=== PATIENT | male | born 1960 | race Caucasian/White ===

== ENCOUNTER 2020-01-31 14:58 | Emergency (ER) | payer MEDICARE, MEDICAID, SELFPAY ==
[2020-01-31 14:59] VITALS: BP 185/76; PULSE 63; RESP 16; TEMP 36.6; O2SAT 98; BMI 32.3
--- NOTE | 2020-01-31 15:15 | CT_ITS ---
STUDY: CT ABDOMEN AND PELVIS WITHOUT CONTRAST REASON FOR EXAM: Male, 60 years old. PT STATED UPPER ABDOMINAL PAIN SINCE HAVING UPPER GI PERFORMED EARLIER THIS WEEK RADIATION DOSAGE (If Supplied By Facility): CTDIvol = ( 17.35 ) mGy, DLP = ( 1333.40 ) mGycm TECHNIQUE: Transaxial images were obtained from the dome of the diaphragm to the symphysis pubis without oral contrast, and without intravenous contrast. Sagittal and coronal images were reconstructed. Individualized dose optimization techniques were used for this CT. COMPARISON: None. FINDINGS: The visualized lung bases are unremarkable. The visualized portions of the heart are within normal limits. Small (subcentimeter) low-density cystic lesions of the liver statistically most likely represents a simple cyst (no specific imaging follow-up recommendations). Normal gallbladder and extrahepatic biliary system. Normal spleen. Normal pancreas. Normal bilateral adrenal glands. Normal right kidney. Normal left kidney. Normal visualized stomach. Normal small intestine. Normal colon. The appendix is visualized and appears normal. Normal abdominal aorta. Normal inferior vena cava. Normal retroperitoneum. Poorly distended urinary bladder. There is enlargement of the prostate gland. There is a small umbilical hernia containing fat. There are diffuse degenerative changes of the visualized lumbar spine. CT/Abdomen/Pelvis W IV Cont ONLY IMPRESSION: 1. No acute inflammatory process or bowel obstruction. Electronically Signed: Rafi Mcleod MD (Brooks) at 16:27 EDT , Service support ,
--- NOTE | 2020-01-31 15:15 | EKG12_ITS ---
Test Reason : Blood Pressure : / mmHG Vent. Rate : 063 BPM Atrial Rate : 063 BPM P-R Int : 152 ms QRS Dur : 116 ms QT Int : 442 ms P-R-T Axes : -23 049 007 degrees QTc Int : 452 ms Normal sinus rhythm with sinus arrhythmia Incomplete right bundle branch block Borderline ECG Confirmed by MACO BERKOWITZ, SEBASTIAN ([id number]), editor trade journal MARIE PRESSLEY ([id number]) on 02/02/2020 8:59:09 AM Referred By: RON Confirmed By:SEBASTIAN DEWEY MD
--- NOTE | 2020-01-31 15:31 | ED.VISSUMM ---
- ER Visit Summary Date of Service: 01/31/20 Chief Complaint: Abdominal pain History of Present Illness: The patient is a [address] Jauregui. He reports that he had an upper GI by Dr. Frias on January 18. States that this showed his Duffy's esophagus and ulcers. Otherwise it was unremarkable. Patient reports that 4 days ago he developed diffuse abdominal pain that radiates up into his chest. It is a continuous aching, cramping pain that is 10 of 10 worsening a 10 currently. Is worsened by nothing including movement or food. Is also relieved by nothing. He has had nausea, but no vomiting. He reports he had a poor appetite. He did does report he has fatty and spicy food intolerance. Patient reports his last bowel was 3 days ago. Typically he goes twice a day. No dysuria or frequency. No fever or chills. Physical Examination: Vitals: Stable. Afebrile. General: Well-nourished and well-developed. Head: Normocephalic atraumatic. Neck: Supple, no lymphadenopathy. No JVD. Nontender. Cardiovascular: Regular rate and rhythm. No murmurs. Respiratory: No respiratory distress. Clear to auscultation bilaterally. Abdominal: Soft, mild diffuse tenderness palpation that is worst in the epigastric region, nondistended, normal bowel sounds. No guarding, rebound, or peritoneal signs. Rectal: No stool in the vault. Back: Nontender. Extremities: Nontender, no edema. Skin: Normal color, no rash. Neurologic: Alert and oriented ?3. Cranial nerves II through XII are intact. Normal strength and sensation. Psych: Normal affect. Test Results: EKG is sinus at 63 with an incomplete right bundle branch block and nonspecific ST changes. This is unchanged from 2014. CBC shows segmented neutrophils of 77 lymphocytes 14. Chem-7 shows a chloride 1 week. LFTs are normal. Lipase is minimally elevated at 432. Troponin is negative. Clinical Impression(s) from Imaging Studies Abdomen/Pelvis CT 01/31/20 15:15 IMPRESSION: 1. No acute inflammatory process or bowel obstruction. Electronically Signed: Rafi Mcleod MD (Brooks) at 16:27 EDT , Service support , Emergency Department Course and Treatment: Patient had an IV placed. He was given morphine and Zofran IV. He is resting more comfortably. Treatment Plan: Patient will be discharged with magnesium citrate and Zofran. Instructed to follow-up with Dr. Bustamante and/or his primary care physician 1 to 2 days if not improving. Return to the emergency department for any worsening symptoms. Disposition: To home in improved and stable condition. Impression: 1. Abdominal pain, uncertain cause. 2. Status post upper GI January 18. This note was generated with [employer] dictation software. It may contain incorrect words, spelling, and punctuation that were not noted in review of the chart prior to signing ED Disposition - Plan for ED Patient: Instructions: ED Unknown Causes of Abdominal Pain Male Prescriptions: Magnesium Citrate [Citrate Of Magnesia] 300 ml PO X1 #1 bottle Ondansetron [Zofran Odt] 4 mg PO Q8H PRN PRN #10 tablet PRN Reason: Nausea Referrals: Regino Roque MD [NON-STAFF] - 1-2 Days if not improving Bhupinder Mascorro MD [STAFF PHYSICIAN] - 1-2 Days if not improving
[2020-01-31 15:33] LABS: Absolute Neutrophil Count 6.5 X10^3/uL (2.0-7.7); Basophil# 0.04 X10^3/uL; Basophil% 0.5 % (0-1); Eosinophil# 0.23 X10^3/uL; Eosinophils% 2.7 % (0-5); Hematocrit 44.2 % (40-54); Hemoglobin 14.4 g/dL (13.0-16.5); Lymphocyte % 14.3 % (19-41); Mean Corp Hgb Conc 32.6 g/dL (32-36); Mean Corpuscular Hgb 30.5 pg (27.0-32.0); Mean Corpuscular Volume 93.6 fL (80-94); Monocyte# 0.44 X10^3/uL; Monocyte% 5.2 % (0-10); NRBC Flagged by Analyzer 0 % (0-5); Neutrophil # 6.48 X10^3/uL (2.7-7.7); Neutrophil % 76.9 % (47-70); Platelet Count 214 K/mm3 (150-450); RBC Distribution Width CV 12.9 % (11.6-14.6); RBC Distribution Width SD 43.7 fl (35.1-43.9); Red Blood Count 4.72 M/mm3 (4.6-6.2); White Blood Count 8.4 K/mm3 (4.4-11.0)
[2020-01-31] MEDS: Morphine 4 MG/ML Syringe IV (15:43)
[2020-01-31] MEDS: Ondansetron 4 MG/2 ML Vial IV (15:43)
[2020-01-31] MEDS: 0.9% Normal Saline 1,000 ML 125 ML IV (15:44)
[2020-01-31 15:48] LABS: AST(SGOT) 15 U/L (15-37); Alanine Aminotransfer ALT/SGPT 23 U/L (16-61); Albumin, Serum 3.6 g/dL (3.2-5.0); Alkaline Phosphatase 72 U/L (45-117); Anion Gap 3 (5-15); BUN 12 mg/dL (7-18); BUN/Creat Ratio 10.7 RATIO (10-20); Bilirubin, Direct 0.17 mg/dL (0.00-0.30); Calcium,Total 9.2 mg/dL (8.5-10.1); Chloride 108 mmol/L (98-107); Creatinine, Serum 1.12 mg/dL (0.70-1.30); EST Glomerular Filtration Rate 71 mL/min (>60); Est Glom Filt Rate - Afr Amer 85 mL/min (>60); Estimated Creatinine Clearance 70.61 ml/min; Globulin 4.2 g/dL (2.2-4.2); Glucose 91 mg/dL (74-106); Lipase 432 U/L (73-393); Potassium 4.2 mmol/L (3.5-5.1); Protein, Total 7.8 g/dL (6.4-8.2); Sodium Level 139 mmol/L (136-145)
[2020-01-31 17:11] VITALS: BP 168/80; PULSE 70; RESP 16; O2SAT 95
== END 2020-01-31 17:13 | disposition home or self-care (01) ==
LOC: ED 15:36
PROVIDERS: Emergency Provider Emergency Medicine; PCP Nurse Practitioner Primary Care
DX: R10.9 Unspecified abdominal pain (principal); K21.9 Gastro-esophageal reflux disease without esophagitis; I10 Essential (primary) hypertension; E78.00 Pure hypercholesterolemia, unspecified; Z79.82 Long term (current) use of aspirin; Z79.899 Other long term (current) drug therapy
CPT/HCPCS: 74177; 80048; 80076; 83690; 84484; 85025; 93005; 96361; 96374; 96375; 99283; J7030; Q9967; A4216; J2405

== ENCOUNTER → 2023-08-16 | Outpatient (CLI) | payer MEDICARE, SELFPAY ==
--- NOTE | 2023-08-16 09:56 | CR.HP_ITS ---
CR - History & Physical General Arrival date:: 08/16/23 Arrival time:: 09:57 Date of Referral:: 06/19/23 Date of CR Evaluation:: 08/16/23 Referring Physician: Dr. Audie Bowie Primary Diagnosis: valve repair/replace History of Present Cardiac Event Onset Date Heart valve replacement or repair:: Yes (05/30/2023) Medications Ambulatory Orders Medication Instructions Recorded aspirin 81 mg chewable tablet 81 mg PO DAILY@0800 01/31/20 esomeprazole magnesium 40 mg 40 mg PO DAILY 01/31/20 capsule,delayed release magnesium citrate 300 ml PO X1 ##1 01/31/20 gfbniwvmngco-oks-fseyq acid-vit 1 ea PO DAILY 01/31/20 K-lycop 400 mcg-20 mcg-370 mcg tablet ondansetron 4 mg disintegrating 4 mg PO Q8H PRN PRN Nausea #10 tabs 01/31/20 tablet pitavastatin calcium 2 mg tablet 2 mg PO QHS 01/31/20 trazodone 50 mg tablet 25 mg PO QHS 01/31/20 carvedilol 6.25 mg tablet 6.25 mg PO BID 04/13/22 cyclobenzaprine 10 mg tablet 10 mg PO TID 04/13/22 famotidine 20 mg tablet 20 mg PO DAILY 04/13/22 losartan 50 mg tablet 50 mg PO DAILY 04/13/22 meloxicam 15 mg tablet 15 mg PO DAILY 04/13/22 sertraline 50 mg tablet 50 mg PO DAILY 04/13/22 Allergies Allergies atorvastatin Allergy (Intermediate, Verified 04/13/22 16:15) Other Sleep Disorder Evaluation Hx of Sleep Apnea: Yes Do you snore loudly (louder than talking or can be heard through closed doors)?: Yes Do you often feel tired/ fatigued/ sleepy during daytime?: No Has anyone observed you stop breathing during sleep?: No History of Hypertension (for STOP score): Yes STOP Results: Positive Advanced Directives Advanced Directives Power of Thoracic Medicine Physician: No Living Will: No Advance Directives Information Provided: No Advance Directives on File: No DNR Order?:: No Past Medical History Covid-19 Screening Physicial Symptoms Other Clinical Concerns Exposure Risk Pertinent Comorbidities 65 years or older:: Yes Has a serious heart condition:: Yes Past Medical Illness Medical History (Reviewed 04/13/22 @ 16:23 by Puja Carranza Anxiety Arrhythmia Barretts esophagus Depression Esophagitis Hemorrhoids History of pulmonary embolism Mixed hyperlipidemia Osteoarthritis Seasonal allergies Sleep apnea Stomach ulcer Past Surgical History Surgical History: no surgical history Social History Smoking History Smoking Status: Former smoker Years Smokin Packs Smoked per Day: 1.5 (stopped in 1994) Hx Tobacco Use: Yes Hx Smoking Exposure: Yes Alcohol Use Alcohol Usage: Yes (rare) Occupation Occupation (List type of work in comments):: Retired Hobbies, Recreation, Social Activities Hobbies: Other Recreational Activities: I am able to engage in all my recreational activities Social Environment Status Marital Status: Current Living Arrangements Living Environment:: Alone Children How many children do you have?: 3 Do any of your children live nearby?: Yes Safety Do you feel safe in your surroundings?: Yes Assistance Do you need any assistance at home?: no Review of Systems Review of Systems Hints Review of Present Symptoms: Reports Fatigue, Appetite - Normal, Appetite - Special Diet and Sleep - Normal; Denies Shortness of Breath at Rest, Shortness of Breath with Exertion, PVD, Operative Discomfort, Angina, Wound Healing, Dizziness/Lightheadedness, Heart Arrhythmia/Irregularities or Sexual Changes Pain Is Patient Pain Free?: Yes Pain Location: back and lower extremity Pain Level: 01/01 Risk Factor Assessment Chief Complaint Chief Complaint: valve repair/replace Vital Signs Pulse Ox: 97 Blood Pressure: 118/80 Pulse Pulse Rate: 67 Pulse Rhythm: Regular Hypertension How long have you been treated?: 4 years Blood Pressure Sitting - Left Arm: 118/80 Stress Stress: Home/Family Obesity Height: 5 ft 9 in Weight:: 218 lb Weight in Pounds: 218.0 lbs Body Mass Index (BMI): 32.1 Nutritional Referral for Obesity: Yes Physical Inactivity Physical Inactivity: Reg Exercise 30 min/day Risk Stratification Risk Guidelines: Moderate Risk: Risk Factor for Smoking, Risk Factor for Diabetes and Risk Factor for Sedentary Lifestyle and Highest Risk: Risk Factor for Dyslipidemia, Risk Factor for Obesity, Risk Factor for Hypertension and Risk Factor for Depression For Smoking Smoking Risk Guidelines For Dyslipidemia Dyslipidemia Risk Guidelines For Diabetes Mellitus Diabetes Risk Guidelines For Obesity/Overweight Obesity/Overweight Risk Guidelines For Hypertension Hypertension Risk Guidelines For Sedentary Lifestyle Sedentary Lifestyle Risk Guidelines For Depression Depression Risk Guidelines Motivation Motivation to Participate On a scale of 1 to 10, how prepared are you to commit to attending program?: 10 What do you see as barriers to successfully being able to complete the program?: no What do you see as the benefits of succesfully completing the program? In other words, what do you hope to get out of participating in the program?: regain strength, healthy Are there issues you are dealing with that will interfere with completing the program?: no Do you have a spouse or signficant other, family or friends who will help suppo rt you to complete the program?: yes
--- NOTE | 2023-08-16 10:03 | PCM.CR.ITP ---
Diagnosis General Information Admitting Diagnosis: valve repair/replace Personal Learning Style:: Audio/Visual Stage of change r/t lifestyle modifications:: Contemplation Gave educational material for:: Treating Heart Disease, How The Heart Works, What it means to have Heart Disease, How Coronary Artery Disease is Diagnosed, Heart Procedures, What Heart Medications Do, Risk Factors & Modifications, Living an Active Life, Nutrition, Emotions & Heart Disease, Stress Management & Relaxation and Sleep Disorders & Heart Disease Education/Goals Cardiac Rehabilitation Goals Personal Goals: Initial Assessment: Improve management of stress and emotions, Improve energy level, Participate in home exercise program, Get back to work, or to resume activities faster, Improve muscle strength and endurance, Improve diet and eating habits (eat healthier) and Control risk factors (learn risk factor modification) Scale for measuring improvement of personal goals Diagnosis & Disease Process Outcomes/Goals: Pt IDs own risk factors & lifestyle modifications by Session 10, Verbalizes symptoms of angina & response by session 3., Pt independently manages and Other Additional Outcomes/Goals: Plan/Interventions: Assist Pt to ID & engage in lifestyle modification to reduce CVD risk, Instruct on individual risk factors, Review symptoms of angina & emergency actions, Review secondary diagnosis & identify educational needs. and Other see comment 30 day Reassessments:: Not Met 30 day Reassessments:: Not Met 30 day Reassessments:: Not Met 30 day Reassessments:: Not Met Final Reassessments:: Not Met Safety Referral to Physical Therapy: No Referral to [facility] Case Management: No Fall Risk Assessed:: Yes Assistive Devices:: None Exercise - Initial Assessment Visit Date of Eval: 08/16/23 (initial eval) Mets: Pre-: >3 METS for 30 minutes by discharge, >5 METS for 30 minutes by discharge, >7 METS for 30 minutes by discharge and Unable to meet goal due to: (see comment below) Physician Prescribed Exercise Modalities: Treadmill, Rower, Airdyne, NuStep, SciFit and Lateral [place] Frequency: 2x/week for 18 weeks [36 sessions] and 3x/week for 12 weeks [36 sessions] Intensity: 60-80% of age predicted maximum heart rate reserve Current METSs:: 3 Target Heart Rate:: 93-109 Outcomes & Goals Goals:: Verbalizes understanding of THR, RPE & goal METS by session 6, Documents in home exercise log/reports 30 min aerobic 5 day/wk by DC, Demonstrates accurate pulse taking by DC and Other additional outcome/goals: see below Intervention & Plan Exercise Program Goals: Instruct on personal THR & RPE, Instruct on MET level & personal MET goal, Show patient to take own pulse /validate performance until accurate, Instruct on home exercise and Other additional plan/int Physical Activity Home Exercise Physical Activity - Home Exercise: Safe Exercise, Warm-up, Self-monitoring, Cool-Down, Home Exercise > 30 min Daily and Sitting Time <3 hours/daily Outcomes & Goals Outcomes/Goals: Demonstrates correct Warm-up/exercise Cool-Down (S3) if = 2.5 METs, Verbalizes symptoms of exercise intolerance by Session 3 (S3), Demonstrate safe equipment use (S3) & follows exercise prescrition (6) and Other: See below Intervention & Plan Plan/Intervention: Instruct warm-up & cool-down if exercising at > 2 METs, Instruct on symptoms of exercise intolerance & actions to take, Instruct & monitor on saf, Assess intial functional capacity & safety risk and Other See below Nutrition - Initial Assessment Program Goals Nutrition Program Goals Patient has diagnosis of Hyperlipidemia (ICD E78)?: Yes Visit Date of Eval: 08/16/23 (initial eval) Cholesterol/Lipids (Other Core Measures) Determine presence & major risk factors that modify LDL goal: Cigarette smoking, Hypertension or hypertensive medication, Low HDL cholesterol <40 mg/dL*, Family history of premature CHD in Male < 55 years: female <65 yearsFa and Age men > 45 years; women >/= 55 years Outcomes/Goals: Pt IDs own risk factors & lifestyle modifications by Session 10, Verbalizes symptoms of angina & response by session 3., Pt independently manages and Other Additional Outcomes/Goals: Intervention/Plan: Advocate for lipid panel cholesterol medication if applicable, Instruct on personal lipid levels & lipid goals/NCEP guidelines, Instruct on cholesterol and Other additional plan/int Referral to dietitian:: No Diabetes (Other Core Measures) Diabetes Type: Not Applicable Weight Mgt (Other Care) Height: 5 ft 9 in Weight:: 218 lb BMI: 32.1 Diagnosis Overweight/Obesity BMI> 30% ICD-10 E66: Yes Diagnosis High BMI/Morbid Obesity BMI> 35% ICD-10 Z68: No Outcomes/Goals: Pt sets, maintains & shows weight loss goal & trend during rehab and Other additional outcomes/goals Intervention/Plan: Instruct on ideal BMI & set weight loss goal w/patient, Assist pt to ID & incorporate diet changes for weight loss by S9, Refer to Structured Weight Loss program as appropriate, Encourage goal of using 250-300dcal per session for weight loss and Other additional plan/interventions Healthy Eating Habits Will attend diet classes:: Yes Outcomes/Goals:: Consume diet rich in vegs,fruits,whole grain/high fiber,fish,lean meat, Limit sat/trans fats,cholesterol & added salts & sugars and Other additional outcome/goals: Intervention/Plan:: Assess current eating habits and Other Additional plan/interventions Education Gave educational materials for:: Signs & symptoms of hypoglycemia, Signs & symptoms of hyperglycemia, Relate diabetes to coronary artery disease and Healthy eating Core - Initial Assessment Visit Date of Eval: 08/16/23 (initial eval) Medication Compliance Preventative Medication(s):: Aspirin, Statin/lipid, Beta jack and ARB (Angiotensi Rcap) H/O mental health issues: depression, anxiety, or addiction?: Yes Doesn?t believe in the benefits of treatment?: No Believes medications are unnecessary or harmful?: No Has a concern about medication side effects?: No Expresses concern over the cost of medications?: No Outcomes/Goals: Verbalizes medications,desired effect & common side effects @ DC, Pt self-reports following medication regimen, Keeps card in wallet w/medications listed by DC and Other additional outcome/goals: Interventions/plans: Instruct on medication effects & side effects, Review medication list w/patient every two weeks, Instruct importance of taking meds as ordered & assist problem solving and Other additional Tobacco Use Tobacco Use: Non-smoker How long ago did you quit using tobacco products?: Greater than or equal to 6 months ago Hypertension Hypertension Diagnosis:: Hypertension ICD-10 I10 [place] [employer] Hypertension Guidelines Outcomes/Goals: Able to verbalize/achieve optimal blood pressure <130/80, Incorporates diet changes & exercise for blood pressure control by DC and Other additional outcomes/goals Interventions/plan: Instruct on optimal blood pressure, hypertension & medications, Instruct on effects of sodium, alcohol, stress, exercise &hypertension and Other additional plan/interventions Tobacco Cessation Referral Smoking Cessation Referral:: No Individual Education/Counseling:: No Education Schedule Given:: Yes Psychosocial - Initial Assess VIsit Date of Eval: 08/16/23 (initial eval) History of Emotional Disorders: Anxious, Depression and Suicidal Tendencies Target Goals Target Goals Outcomes/Goals: See list Psychosocial Outcomes/Goals:: ID's personal stressors & 2 strategies to manage stress by discharge and Other Additional outcome/goals: Intervention/Plan: See List Interventions/Plan:: Assess stressors,coping strategies & signs of derpression on admission, Instruct/assist pt to develop coping & personal stress Mgt strategies, Refer to Behavioral Health if appropriate, Refer to Physician if appropriate, Instruct patient to recognize signs & symptoms of depression, Instruct patient to recog and Other additional plan/intervention Patient Health Questionnaire PHQ-9 Screening Initial Assessment: 1. Little interest or pleasure in doing things: Several days 2. Feeling down, depressed, or hopeless: Not at all 3. Trouble falling or staying asleep, or sleeping too much: Not at all 4. Feeling tired or having little energy: More than half the days 5. Poor appetite or overeating: Not at all 6. Feeling bad about yourself -- or that you are a failure or have let yourself or your family down: Not at all 7. Trouble concentrating on things, such as reading the newspaper or watching television: Not at all 8. Moving or speaking so slowly that other people could have noticed. Or the opposite - being so fidgety or restless that you have been moving around a lot more than usual: Not at all 9. Thoughts that you would be better off , or of hurting yourself in some way: Not at all How difficult have these problems made it for you to do your work, take care of things at home, or get along with other people?: Somewhat difficult Total Score: 3 NEHEMIAH-Q SV Test Statements CAD is a disease of the arteries in the heart: False Examples of risk factors for heart disease: True Angina is chest pain or discomfort: True The benefits of resistance training include: True Eating more meat and dairy products: False Anti-platelet medications such as aspirin are important: True The only effective way to manage stress: False An exercise warm-up slowly increases heart rate: I Don't Know Prepared, processed foods usually have high sodium: True Depression is common after a heart attack: False The statin medications lower cholesterol: I Don't Know To control blood pressure, lower the amount of sodium: True If someone gets chest discomfort during walking: False Transfats are partially hydrogenated vegetable oils: True Sleep apnea that is not treated increases the risk: False To control cholesterol, one should become a vegetarian: False Someone knows if he/she is exercising at the right level: False Diabetes cannot be prevented with exercise & health eating: False Stress is a large risk for heart attack: True A diet that can help lower blood pressure is rich in: True Total Score Total Correct Responses: 16 Self-Efficacy 6-Item Scale Initial Assessment: We would like to know how confident you are in doing certain activities. Please select your confidence level for: Fatigue Select Number: 9 Physical Discomfort or Pain Select Number: 9 Emotional Distress Select Number: 9 Other Symptoms or Health Problems Select Number: 7 Different Tasks and Activities Select Number: 9 Medication Nutrition Survey Nutrition Survey Instructions Scoring Instructions Nutrition Survey Initial: Have you lost >10 lbs over the past 2 months without trying?: Yes Are you following a special diet at home for diabetes, low fat, or low salt?: No Are you interested in meeting with a dietitian for help understanding your diet?: Yes Do you eat less than 3 meals a day?: Yes Do you eat fatty meats (medina, sausage, ribs, etc), fried foods, desserts, large amounts of salad dressings, margarine, butter, or cheese most days?: No Do you season food with salt, seasoning salt, or garlic salt?: Yes Do you used canned, boxed, frozen meals, or soups, seasoning packets?: Yes Exercise - Final/Discharge Physician Prescribed Exercise Modalities: Treadmill, Rower, Airdyne, NuStep, SciFit and Lateral Tractor Trailer Operator Frequency: 2x/week for 18 weeks [36 sessions] and 3x/week for 12 weeks [36 sessions] Intensity: 60-80% of age predicted maximum heart rate reserve Current METSs:: 3 Target Heart Rate:: 93-109 Nutrition - 30-Day Assessment Weight Mgt (Other Care) Height: 5 ft 9 in Weight:: 218 lb BMI: 32.1 Nutrition - 60-Day Assessment Weight Mgt (Other Care) Height: 5 ft 9 in Weight:: 218 lb BMI: 32.1 Psychosocial - 30-Day Assess Target Goals Target Goals Psychosocial - 60-Day Assess Target Goals Target Goals Psychosocial - 90-Day Assess Target Goals Target Goals Psychosocial - Final Assessmen Target Goals Target Goals Nutrition - 90-Day Assessment Weight Mgt (Other Care) Height: 5 ft 9 in Weight:: 218 lb BMI: 32.1 Nutrition - Final Assessment Program Goals Patient has diagnosis of Hyperlipidemia (ICD E78)?: Yes Weight Mgt (Other Care) Height: 5 ft 9 in Weight:: 218 lb BMI: 32.1
[2023-08-16 10:27] VITALS: BP 118/80; PULSE 67; O2SAT 97; BMI 32.1
[2023-08-16 10:49] VITALS: BMI 32.1
--- NOTE | 2023-08-16 10:53 | EKG12_ITS ---
Test Reason : PRE-CADIAC REHAB Blood Pressure : / mmHG Vent. Rate : 065 BPM Atrial Rate : 065 BPM P-R Int : 172 ms QRS Dur : 118 ms QT Int : 408 ms P-R-T Axes : 021 003 001 degrees QTc Int : 424 ms Normal sinus rhythm Left ventricular hypertrophy with QRS widening Nonspecific T wave abnormality Abnormal ECG Confirmed by CYNTHIA BERKOWITZ, LEIDY ([id number]), editor news FLO BYRNE ([id number]) on 08/17/2023 6:48:47 AM Referred By: Audie Bowie Confirmed By:LEIDY MARIE MD
== END | disposition home or self-care (01) ==
PROVIDERS: PCP Nurse Practitioner Primary Care; Referring Provider Thoracic Surgery (Cardiothoracic Vascular Surgery); Visit Provider Thoracic Surgery (Cardiothoracic Vascular Surgery)
DX: Z01.818 Encounter for other preprocedural examination (principal); E78.5 Hyperlipidemia, unspecified
CPT/HCPCS: 93005

== ENCOUNTER 2023-08-24 23:54 | Emergency (ER) | payer MEDICARE, SELFPAY ==
[2023-08-16 10:49] VITALS: BMI 32.1
[2023-08-24 23:55] VITALS: BP 152/98; PULSE 70; RESP 18; TEMP 36.7; O2SAT 98; BMI 32.8
[2023-08-25] VITALS (7 sets, daily range): BP systolic 113–152; BP diastolic 66–96; PULSE 66–74; RESP 16; TEMP 36.6; O2SAT 96–98
--- NOTE | 2023-08-25 00:03 | EKG12_ITS ---
Test Reason : [facility] Blood Pressure : / mmHG Vent. Rate : 063 BPM Atrial Rate : 063 BPM P-R Int : 152 ms QRS Dur : 144 ms QT Int : 462 ms P-R-T Axes : 039 007 023 degrees QTc Int : 472 ms Normal sinus rhythm Right bundle branch block Abnormal ECG Confirmed by Glen Cat ([id number]), newspaper managing editor FLO BYRNE ([id number]) on 08/27/2023 10:26:32 AM Referred By: Confirmed By:Glen Cat
[2023-08-25 00:19] LABS: Basophil# 0.04 X10^3/uL; Basophil% 0.6 % (0-1); Eosinophil# 0.25 X10^3/uL; Eosinophils% 3.5 % (0-5); Hematocrit 34.1 % (40-54); Hemoglobin 10.6 g/dL (13.0-16.5); Lymphocyte % 32.4 % (19-41); Mean Corp Hgb Conc 31.1 g/dL (32-36); Mean Corpuscular Hgb 25.6 pg (27.0-32.0); Mean Corpuscular Volume 82.4 fL (80-94); Mean Platelet Vol. 9.1 fl (6.2-12.0); Monocyte# 0.46 X10^3/uL; Monocyte% 6.5 % (0-10); NRBC Flagged by Analyzer 0 % (0-5); Neutrophil # 4.01 X10^3/uL (2.7-7.7); Neutrophil % 56.6 % (47-70); Platelet Count 198 K/mm3 (150-450); RBC Distribution Width CV 13.6 % (11.6-14.6); RBC Distribution Width SD 40.6 fl (35.1-43.9); Red Blood Count 4.14 M/mm3 (4.6-6.2); White Blood Count 7.1 K/mm3 (4.4-11.0)
[2023-08-25 00:30] LABS: ALB/GLOB Ratio 0.9 RATIO (0.9-2.4); AST(SGOT) 23 U/L (15-37); Alanine Aminotransfer ALT/SGPT 27 U/L (16-61); Albumin, Serum 3.5 g/dL (3.2-5.0); Alkaline Phosphatase 76 U/L (45-117); Anion Gap 7 (5-15); BUN 9 mg/dL (7-18); Calcium,Total 9.1 mg/dL (8.5-10.1); Chloride 106 mmol/L (98-107); Creatinine, Serum 0.82 mg/dL (0.70-1.30); EST Glomerular Filtration Rate 101 mL/min (>60); Est Glom Filt Rate - Afr Amer 122 mL/min (>60); Estimated Creatinine Clearance 108.43 ml/min; Globulin 4.1 g/dL (2.2-4.2); Glucose 104 mg/dL (74-106); Potassium 3.5 mmol/L (3.5-5.1); Protein, Total 7.6 g/dL (6.4-8.2); Sodium Level 136 mmol/L (136-145)
[2023-08-25 00:31] LABS: Acetaminophen (Tylenol) Level < 2.0 ug/mL (10.0-30.0); Salicylate < 1.7 mg/dL (2.8-20.0)
[2023-08-25 00:35] LABS: Amphetamine Urine VISTA NEGATIVE (<1000 ng/mL); Barbiturate Urine VISTA NEGATIVE (< 200 ng/mL); Benzodiazepine Urine VISTA NEGATIVE (< 200 ng/mL); Cocaine Urine VISTA NEGATIVE (< 300 ng/mL); Ecstacy Urine VISTA NEGATIVE (< 500 ng/mL); Methadone Urine VISTA NEGATIVE (< 300 ng/mL); PCP Urine VISTA NEGATIVE (< 25 ng/mL); THC Urine VISTA NEGATIVE (< 50 ng/mL); Vista UDS pH Range 6
--- NOTE | 2023-08-25 06:40 | EX.ED.DYSGE1 ---
HPI History of Present Illness Chief Complaint: Suicidal Informant: patient and EMS Narrative Narrative: Patient is a 63-year-old male with past medical history of hypertension hyperlipidemia and GERD. He was brought in tonight secondary to depression with suicidal ideation and intentional overdose. Patient states that he and his are currently going through divorce and that he feels depressed and hopeless. He also states he is being investigated but would not provide further information. He states this evening he drank alcohol and then took 3 of his trazodone in an attempt to hurt himself. He does report that years ago he attempted suicide by hanging. Please note that the patient did not call EMS but that reportedly he sent multiple text messages to his that he is in the process of being from stating things along the lines as you will not see me again and secondary to this authorities were sent for a welfare check [facility] Medical History Anxiety Arrhythmia Barretts esophagus Depression Esophagitis Hemorrhoids History of pulmonary embolism Mixed hyperlipidemia Osteoarthritis Seasonal allergies Sleep apnea Stomach ulcer Home Medications aspirin 81 mg chewable tablet 81 mg PO DAILY@0800 01/31/20 [History Last Taken Unknown] esomeprazole magnesium 40 mg capsule,delayed release 40 mg PO DAILY 01/31/20 [History Last Taken Unknown] magnesium citrate 300 ml PO X1 ##1 01/31/20 [Rx Last Taken Unknown] fsdwixketwuz-cil-mleev acid-vit K-lycop 400 mcg-20 mcg-370 mcg tablet 1 ea PO DAILY 01/31/20 [History Last Taken Unknown] pitavastatin calcium 2 mg tablet 2 mg PO QHS 01/31/20 [History Last Taken Unknown] trazodone 50 mg tablet 25 mg PO QHS 01/31/20 [History Last Taken Unknown] cyclobenzaprine 10 mg tablet 10 mg PO TID PRN muscle spasm 04/13/22 [History Last Taken Unknown] losartan 50 mg tablet 50 mg PO DAILY 04/13/22 [History Last Taken Unknown] amlodipine 10 mg tablet 10 mg PO DAILY 08/25/23 [History Last Taken Unknown] metoprolol tartrate 50 mg tablet (Lopressor) 100 mg PO DAILY 08/25/23 [History Last Taken Unknown] nitroglycerin 0.4 mg sublingual tablet 0.4 mg sublingual Q5M PRN chest pain 08/25/23 [History Last Taken Unknown] Allergy/AdvReac Type Severity Reaction Status Date / Time atorvastatin Allergy Intermediate Other Verified 08/25/23 00:04 Surgical History (Updated 08/25/23 @ 00:00 by Ayleen Morrell) Hx of CABG Social History Smoking Status: Former smoker quit date: 05/08/92 alcohol intake: current alcohol intake frequency: 3 or more drinks per day Alcohol type: beer ROS ROS ED Constitutional Constitutional ED: Denies chills or fever(s) Eyes Eyes: Denies change in vision ENT ENT ED: Denies sore throat Cardiovascular Cardiovascular: Denies chest pain Respiratory/Chest Respiratory/Chest: Denies cough or dyspnea Gastrointestinal Gastrointestinal: Denies abdominal pain, diarrhea, nausea or vomiting Genitourinary Genitourinary ED: Denies dysuria Musculoskeletal Musculoskeletal: Denies myalgias Integumentary Denies rash Neurologic Neurologic: Denies headache(s) Psychiatric Psychiatric: Reports depression, suicidal ideation and suicidal thoughts Hematologic/Lymphatic Hematologic/Lymphatic: Denies easy bleeding or easy bruising EXAM Physical Exam Const Vital Signs: 08/24/23 23:55 08/25/23 05:13 Temperature 98.0 F Temperature Source Oral Pulse Rate 70 66 Respiratory Rate 18 16 Blood Pressure 152/98 H 113/66 Blood Pressure Mean 116 81 Pulse Ox 98 97 Oxygen Delivery Method Room Air Room Air Positive well nourished and well developed General Appearance ED: well developed; Negative for pallor HEENT HEENT Narrative: Normocephalic atraumatic No tongue or lip swelling no oral lesions no airway edema or compromise No signs of infection noted in the posterior pharynx Eyes EOMs intact bilaterally Eyes Narrative: Pupils are dilated and slightly sluggish to respond consistent with alcohol use. There is also mild scleral injection consistent with this. Neck supple Neck Narrative: No nuchal rigidity or meningeal signs noted Resp normal respiratory effort and clear to auscultation bilaterally Cardio regular rate and regular rhythm Rate: other Other Details: Radial and carotid pulses are equal and symmetric GI normal to inspection, nondistended, normoactive bowel sounds, non-tender, non-distended and no masses Auscultation: normoactive bowel sounds Palpation: soft Extremity normal to inspection Extremity Narrative: No asymmetric edema no pitting edema negative Homans' sign bilaterally Neuro oriented x3 and CN's II-XII intact bilaterally Sensorium / Orientation: alert Psych Psych Narrative: Patient has a depressed/flat affect with suicidal ideation Skin no rashes or lesions noted and no wounds General Skin Exam: Negative for jaundice or pallor MDM MDM MDM Narrative Medical decision making narrative: Patient arrived to the ER slightly hypertensive otherwise with stable vitals. He reported feeling depressed and hopeless secondary to his social situation. He admitted to alcohol use this evening but then states that he also took 3 of his prescribed trazodone in an attempt to hurt himself. He states he did this roughly 2 hours prior to arrival. He denied any other ingestion or illicit drug use. He does state that multiple years ago he attempted to harm himself through hanging and based on this report he is high risk. Therefore based on his depression with suicidal ideation and high risk for repeat suicide attempt and completion a psychiatric workup was performed. Lab work revealed no clinically significant findings other than elevated alcohol value consistent with his history of drinking this evening. The trazodone dose would be 75 mg as he states it was his home medication that he took and they are 25 mg each. This is not an overdose as normal trazodone dosages run from 25 to 400 mg daily. The patient was then washed in the ER until his alcohol level was below 100. At this time he has been monitored for over 6 hours from the time of ingestion and is hemodynamically stable. Therefore the patient is medically cleared for transfer/placement to a psychiatric facility. The patient is still pending evaluation by crisis center as his alcohol level is just now crossed below the 100 value threshold. As that evaluation is still pending he will be signed out to the [facility] day physician Dr. Almazan. History & Record Review Discussion w/independent historian: EMS personnel and Patient Lab Data Attestation: I reviewed the patient's lab results. Labs: Laboratory Results - last 24 hr 08/25/23 08/25/23 08/25/23 00:02 00:19 05:04 WBC 7.1 RBC 4.14 L Hgb 10.6 L Hct 34.1 L MCV 82.4 MCH 25.6 L MCHC 31.1 L RDW Std Deviation 40.6 RDW Coeff of Domo 13.6 Plt Count 198 MPV 9.1 Immature Gran % (Auto) 0.400 Neut % (Auto) 56.6 Lymph % (Auto) 32.4 [place] % (Auto) 6.5 Eos % (Auto) 3.5 Baso % (Auto) 0.6 Absolute Neuts (auto) 4.0 Absolute Lymphs (auto) 2.30 Nucleated RBC % 0 Sodium 136 Potassium 3.5 Chloride 106 Carbon Dioxide 23.0 Anion Gap 7 BUN 9 Creatinine 0.82 Estim Creat Clear Calc 108.43 Est GFR (MDRD) Af Amer 122 Est GFR (MDRD) Non-Af 101 BUN/Creatinine Ratio 11.0 Glucose 104 Calcium 9.1 Total Bilirubin 0.20 AST 23 ALT 27 Alkaline Phosphatase 76 Total Protein 7.6 Albumin 3.5 Globulin 4.1 Albumin/Globulin Ratio 0.9 Salicylates < 1.7 L Urine Opiates Screen NEGATIVE Urine Methadone Screen NEGATIVE Acetaminophen < 2.0 L Ur Barbiturates Screen NEGATIVE Ur Phencyclidine Scrn NEGATIVE Ur Amphetamines Screen NEGATIVE MDMA (Ecstasy) Screen NEGATIVE U Benzodiazepines Scrn NEGATIVE Urine Cocaine Screen NEGATIVE U Cannabinoids Screen NEGATIVE Ur Drug Screen Comment Ethyl Alcohol 198.0 115.0 Management Discussion 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 healthcare 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 Discharge Plan Triage Chief Complaint: Suicidal ED Provider: Denzel Good Dx/Rx/DC Orders Clinical Impression: Depression with suicidal ideation, Benign essential hypertension, Alcohol intoxication Prescriptions: No Action losartan 50 mg tablet 50 mg PO DAILY cyclobenzaprine 10 mg tablet 10 mg PO TID PRN (Reason: muscle spasm) trazodone 50 MG tablet 25 mg PO QHS esomeprazole magnesium 40 MG capsule 40 mg PO DAILY aspirin 81 MG tablet,chewable 81 mg PO DAILY@0800 pitavastatin calcium 2 MG tablet 2 mg PO QHS jmlveuwj-jfy-yxqcm-vit K-lycop 1 EACH tablet 1 ea PO DAILY magnesium citrate 300 ML solution 300 ml PO X1 Qty: 1 0RF Rx Instructions: metoprolol tartrate [Lopressor] 50 mg tablet 100 mg PO DAILY amlodipine 10 mg tablet 10 mg PO DAILY Patient Comments: Take 1 tablet by mouth once daily. Take one tablet daily nitroglycerin 0.4 mg tablet, sublingual 0.4 mg sublingual Q5M PRN (Reason: chest pain) Rx Instructions: do not exceed 3 doses per episode Primary Care Provider: Carola Khoury NP Referrals: Podlogar,Carola FISH CONSERVATIONIST, FISH CONSERVATIONIST-C [Primary Care Provider] -
--- NOTE | 2023-08-25 07:05 | ED.RN ---
CALLED [facility] TO MAKE THEM AWARE PTS ETHYL ALCOHOL IS NOW LOW ENOUGH TO BE EVALUATED.
[2023-08-25] MEDS: Losartan Potassium 50 MG Tablet PO (09:28)
[2023-08-25] MEDS: Aspirin 81 MG TAB.CHEW PO (09:28)
[2023-08-25] MEDS: Pantoprazole Sodium 40 MG Tablet PO (09:29)
--- NOTE | 2023-08-25 12:54 | ED.RN ---
RECEIVED CALL FROM [facility] AT 1225 TO GIVE ACCEPTING INFO FOR PT. REQUESTED [employer] FAXED TO THEM AND WOULD CONFIRM WHEN THEY RECEIVE IT FOR US TO SET UP TRANSPORTATION. CALLED [facility] TO MAKE THEM AWARE OF ACCEPTANCE.
[2023-08-25] MEDS: amLODIPine 10 MG Tablet PO (13:42)
== END 2023-08-25 16:40 ==
LOC: ED 08-25 00:28
PROVIDERS: Emergency Provider Emergency Medicine; PCP Nurse Practitioner Primary Care; Visit Provider Emergency Medicine
DX: R45.851 Suicidal ideations (principal); F10.129 Alcohol abuse with intoxication, unspecified; Z87.891 Personal history of nicotine dependence; I10 Essential (primary) hypertension; F32.A Depression, unspecified; K21.00 Gastro-esophageal reflux disease with esophagitis, without bleeding; E78.2 Mixed hyperlipidemia; Z79.899 Other long term (current) drug therapy
CPT/HCPCS: 36415; 80053; 80307; 80320; 80329; 85025; 87426; 93005; 99285; A4216; G0480

== ENCOUNTER 2023-09-11 12:07 | Emergency (ER) | payer MEDICARE, MEDICAID, SELFPAY ==
[2023-08-16 10:49] VITALS: BMI 32.1
[2023-09-11] VITALS (9 sets, daily range): BP systolic 109–129; BP diastolic 70–79; PULSE 57–94; RESP 12–19; TEMP 36.2–36.6; O2SAT 95–99; BMI 30.4
--- NOTE | 2023-09-11 12:24 | EDS_ITS ---
HPI HPI - Psych History of Present Illness Chief Complaint: Suicidal Detail of Chief Complaint: Depression and suicidal ideation Informant: patient Narrative Narrative: Patient presents to the emergency department with complaint of doing depressed and suicidal today. He states that 2 hours ago he took 10 trazodone tablets 25 mg each. 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 Patient states he is having some financial issues and some issues interpersonal with his son. Patient denies alcohol use or illicit drug use. He denies auditory or visual hallucinations. He denies homicidal ideation. He does not see a psychiatrist. [facility] Medical History Anxiety Arrhythmia Barretts esophagus Depression Esophagitis Hemorrhoids History of pulmonary embolism Mixed hyperlipidemia Osteoarthritis Seasonal allergies Sleep apnea Stomach ulcer Home Medications aspirin 81 mg chewable tablet 81 mg PO DAILY@0800 01/31/20 [History Last Taken Unknown] esomeprazole magnesium 40 mg capsule,delayed release 40 mg PO DAILY 01/31/20 [History Last Taken Unknown] magnesium citrate 300 ml PO X1 ##1 01/31/20 [Rx Last Taken Unknown] oeqzcvnniddj-odv-iuryk acid-vit K-lycop 400 mcg-20 mcg-370 mcg tablet 1 ea PO DAILY 01/31/20 [History Last Taken Unknown] pitavastatin calcium 2 mg tablet 2 mg PO QHS 01/31/20 [History Last Taken Unknown] trazodone 50 mg tablet 25 mg PO QHS 01/31/20 [History Last Taken Unknown] cyclobenzaprine 10 mg tablet 10 mg PO TID PRN muscle spasm 04/13/22 [History Last Taken Unknown] losartan 50 mg tablet 50 mg PO DAILY 04/13/22 [History Last Taken Unknown] amlodipine 10 mg tablet 10 mg PO DAILY 08/25/23 [History Last Taken Unknown] metoprolol tartrate 50 mg tablet (Lopressor) 100 mg PO DAILY 08/25/23 [History Last Taken Unknown] nitroglycerin 0.4 mg sublingual tablet 0.4 mg sublingual Q5M PRN chest pain 08/25/23 [History Last Taken Unknown] Allergy/AdvReac Type Severity Reaction Status Date / Time atorvastatin Allergy Intermediate Other Verified 09/11/23 12:08 Surgical History Hx of CABG Social History Smoking Status: Former smoker quit date: 05/08/92 alcohol intake: current alcohol intake frequency: 3 or more drinks per day Alcohol type: beer ROS ROS ED Review of Systems ROS Unobtainable: other Constitutional Constitutional ED: Reports lethargy; Denies chills, fever(s), sweats or weight loss Eyes Eyes: Denies blurry vision, change in vision or diplopia ENT ENT ED: Denies rhinorrhea or sore throat Cardiovascular Cardiovascular: Denies chest pain, orthopnea or racing heartbeat Respiratory/Chest Respiratory/Chest: Denies cough, dyspnea, dyspnea on exertion, orthopnea or sputum Gastrointestinal Gastrointestinal: Denies abdominal pain, diarrhea, nausea or vomiting Genitourinary Genitourinary ED: Denies dysuria, hematuria or urinary frequency Musculoskeletal Musculoskeletal: Denies arthralgias, back pain, myalgias or neck pain Integumentary Reports other Details: Laceration to left arm ; Denies abscess, Abrasions or rash Neurologic Neurologic: Denies headache(s) or weakness Psychiatric Psychiatric: Reports depression, suicidal ideation and suicidal thoughts; Denies anxiety Endocrine Endocrinology: Denies polydipsia, polyphagia or polyuria Hematologic/Lymphatic Hematologic/Lymphatic: Denies easy bleeding, easy bruising or lymphadenopathy Allergic/Immunologic Allergic/Immunologic ED: Denies mouth swelling, tongue swelling or urticaria EXAM Physical Exam Const Vital Signs: 09/11/23 12:08 09/11/23 13:07 09/11/23 14:00 Temperature 97.6 F L Temperature Source Temporal Pulse Rate 73 61 63 Respiratory Rate 12 12 19 H Blood Pressure 119/70 109/74 128/77 H Blood Pressure Mean 86 85 94 Pulse Ox 97 97 98 Oxygen Delivery Method Room Air Room Air Room Air 09/11/23 15:03 Temperature 97.9 F Temperature Source Oral Pulse Rate 62 Respiratory Rate 14 Blood Pressure 129/79 H Blood Pressure Mean 95 Pulse Ox 99 Oxygen Delivery Method Room Air Positive well nourished and well developed General Appearance ED: well developed and NAD HEENT Reports TM's clear and moist mucous membranes normocephalic and atraumatic; Negative for trauma or tenderness Tympanic Membrane ED: Yes TM's clear Eyes PERRL and EOMs intact bilaterally General Eye ED: Negative for pale conjunctiva or scleral icterus Neck no lymphadenopathy, supple and no JVD General: Negative for tenderness Chest Wall inspection of chest normal and palpation of chest normal Chest: Negative for tenderness Resp normal respiratory effort and clear to auscultation bilaterally Effort and Inspection: Negative for respiratory distress or pain with movement Auscultation: Negative for rhonchi, wheezes or diminished lung sounds Cardio regular rate, regular rhythm, S1 normal heart sound, S2 normal heart sound and no murmurs Peripheral Pulses: pulses 2+ throughout GI normal to inspection, nondistended, normoactive bowel sounds, soft to palpation, non-tender, non-distended and no masses Back/Spine no CVA tenderness and no thoracic nor lumbar tenderness Extremity normal to inspection Extremity Narrative: Left upper extremity-patient has a 4 cm laceration over the antecubital region appears to be superficial. No active bleeding. He has normal range of motion flexion extension of all digits and normal flexion extension at the elbow against resistance. Normal radial and ulnar pulses distally. General Extremety ED: Negative for edema General Extremity: Negative for edema Neuro oriented x3, CN's II-XII intact bilaterally, no sensory deficits noted and gait normal Sensorium / Orientation: awake, alert, oriented to person, oriented to place and oriented to time Motor Exam: strength 5/5 throughout and strength abnormal Psych mental status grossly normal Skin no rashes or lesions noted and no wounds MDM MDM MDM Narrative Medical decision making narrative: Patient presents to the emergency department with suicidal ideation and attempt at cutting his right arm and take an overdose of trazodone. Discussed with poison control they recommended observing him for at least 6 hours. EKG obtained arrival shows sinus rhythm with rate of 55 bpm with right bundle branch block without evidence of QTc prolongation. CBC with differential, 7.4 with hemoglobin 11.1 and platelet count of 220. Chemistries unremarkable. Salicylate and Tylenol level negative. Alcohol was negative. Toxicology screen pending. Patient had suture repair of his right arm laceration. See procedure note. Patient will be seen by crisis. Lab Data Attestation: I reviewed the patient's lab results. Labs: Laboratory Results - last 24 hr 09/11/23 09/11/23 12:40 14:58 WBC 7.4 RBC 4.45 L Hgb 11.1 L Hct 36.8 L MCV 82.7 MCH 24.9 L MCHC 30.2 L RDW Std Deviation 43.8 RDW Coeff of Domo 14.8 H Plt Count 220 MPV 8.8 Immature Gran % (Auto) 0.300 Neut % (Auto) 86.6 H Lymph % (Auto) 8.5 L [place] % (Auto) 3.8 Eos % (Auto) 0.4 Baso % (Auto) 0.4 Absolute Neuts (auto) 6.5 Absolute Lymphs (auto) 0.63 L Nucleated RBC % 0 Sodium 138 Potassium 3.6 Chloride 103 Carbon Dioxide 24.0 Anion Gap 11 BUN 16 Creatinine 0.91 Estim Creat Clear Calc 94.17 Est GFR (MDRD) Af Amer 108 Est GFR (MDRD) Non-Af 89 BUN/Creatinine Ratio 17.6 Glucose 120 H Calcium 9.0 Salicylates < 1.7 L Urine Opiates Screen NEGATIVE Urine Methadone Screen NEGATIVE Acetaminophen < 2.0 L Ur Barbiturates Screen NEGATIVE Ur Phencyclidine Scrn NEGATIVE Ur Amphetamines Screen NEGATIVE MDMA (Ecstasy) Screen POSITIVE H U Benzodiazepines Scrn NEGATIVE Urine Cocaine Screen NEGATIVE U Cannabinoids Screen NEGATIVE Ur Drug Screen Comment Ethyl Alcohol < 3.0 Procedures Lacerations Right arm laceration: Length: 1.57 in Depth: Sub Q Shape: Linear Prep: Sterile Conditions and Shure-Clens Laceration repair: Irrigated, Lidocaine, Local and Skin sutures Irrigated (ml): 100 Number of Sutures/Bigelow: 4 Suture Information: Ethilon, Simple and 5-0 Discharge Plan Triage Chief Complaint: Suicidal ED Provider: Andrzej Casillas Dx/Rx/DC Orders Clinical Impression: Drug overdose, intentional, Suicidal ideations, Depression, Laceration of right forearm Prescriptions: No Action losartan 50 mg tablet 50 mg PO DAILY cyclobenzaprine 10 mg tablet 10 mg PO TID PRN (Reason: muscle spasm) trazodone 50 MG tablet 25 mg PO QHS esomeprazole magnesium 40 MG capsule 40 mg PO DAILY aspirin 81 MG tablet,chewable 81 mg PO DAILY@0800 pitavastatin calcium 2 MG tablet 2 mg PO QHS wxewdtmv-asa-yxrko-vit K-lycop 1 EACH tablet 1 ea PO DAILY magnesium citrate 300 ML solution 300 ml PO X1 Qty: 1 0RF Rx Instructions: metoprolol tartrate [Lopressor] 50 mg tablet 100 mg PO DAILY amlodipine 10 mg tablet 10 mg PO DAILY Patient Comments: Take 1 tablet by mouth once daily. Take one tablet daily nitroglycerin 0.4 mg tablet, sublingual 0.4 mg sublingual Q5M PRN (Reason: chest pain) Rx Instructions: do not exceed 3 doses per episode Primary Care Provider: Carola Khoury NP Referrals: Carola Khoury NP, LICENSED FUNERAL DIRECTOR AND EMBALMER-C [Primary Care Provider] - Disposition Disposition: Psychiatric Hospital or Unit
--- NOTE | 2023-09-11 12:28 | EKG12_ITS ---
Test Reason : Blood Pressure : / mmHG Vent. Rate : 055 BPM Atrial Rate : 055 BPM P-R Int : 164 ms QRS Dur : 128 ms QT Int : 494 ms P-R-T Axes : 029 008 006 degrees QTc Int : 472 ms Sinus bradycardia Right bundle branch block Minimal voltage criteria for LVH, may be normal variant ( R in aVL ) Abnormal ECG Confirmed by Glen Cat ([id number]), editor farm journal MARIE PRESSLEY ([id number]) on 09/13/2023 11:06:29 AM Referred By: Confirmed By:Glen Cat
[2023-09-11] MEDS: Lidocaine 1% (20 ml mdv) 20 ML Vial 6 ML INFILT (12:35)
--- NOTE | 2023-09-11 12:46 | ED.RN ---
THIS RN RECEIVED A PHONE CALL FROM POISON CONTROL, REPORTS THAT THEY HAD SPOKE TO DR. PABON AND REPORTS THAT THEY ARE CONCERNED WITH PT DOSAGE OF TRAZODONE BECAUSE TRAZODONE IS NOT MANUFACTURED IN 25MG TABLETS. PER POISON CONTROL PT SHOULD BE OBSERVED FOR 6-12 HOURS.
[2023-09-11 13:07] LABS: Absolute Lymphocyte Count 0.63 X10^3/uL (0.83-4.51); Absolute Neutrophil Count 6.5 X10^3/uL (2.0-7.7); Basophil# 0.03 X10^3/uL; Basophil% 0.4 % (0-1); Eosinophil# 0.03 X10^3/uL; Eosinophils% 0.4 % (0-5); Hematocrit 36.8 % (40-54); Hemoglobin 11.1 g/dL (13.0-16.5); Lymphocyte # 0.63 X10^3/ul (0.83-4.51); Lymphocyte % 8.5 % (19-41); Mean Corp Hgb Conc 30.2 g/dL (32-36); Mean Corpuscular Hgb 24.9 pg (27.0-32.0); Mean Corpuscular Volume 82.7 fL (80-94); Mean Platelet Vol. 8.8 fl (6.2-12.0); Monocyte# 0.28 X10^3/uL; Monocyte% 3.8 % (0-10); NRBC Flagged by Analyzer 0 % (0-5); Neutrophil # 6.45 X10^3/uL (2.7-7.7); Neutrophil % 86.6 % (47-70); Platelet Count 220 K/mm3 (150-450); RBC Distribution Width CV 14.8 % (11.6-14.6); RBC Distribution Width SD 43.8 fl (35.1-43.9); Red Blood Count 4.45 M/mm3 (4.6-6.2); White Blood Count 7.4 K/mm3 (4.4-11.0)
[2023-09-11 13:17] LABS: Anion Gap 11 (5-15); BUN 16 mg/dL (7-18); BUN/Creat Ratio 17.6 RATIO (10-20); Chloride 103 mmol/L (98-107); Creatinine, Serum 0.91 mg/dL (0.70-1.30); EST Glomerular Filtration Rate 89 mL/min (>60); Est Glom Filt Rate - Afr Amer 108 mL/min (>60); Estimated Creatinine Clearance 94.17 ml/min; Glucose 120 mg/dL (74-106); Potassium 3.6 mmol/L (3.5-5.1); Sodium Level 138 mmol/L (136-145)
[2023-09-11 13:28] LABS: Alcohol, Blood (Medical)-Serum < 3.0 mg/dL
[2023-09-11 13:36] LABS: Acetaminophen (Tylenol) Level < 2.0 ug/mL (10.0-30.0); Salicylate < 1.7 mg/dL (2.8-20.0)
[2023-09-11 15:05] LABS: Squamous Epithelial Cells - UA 0 SEEN /hpf (0-5)
[2023-09-11 15:28] LABS: Amphetamine Urine NEGATIVE (<1000 ng/mL); Barbiturate Urine NEGATIVE (< 200 ng/mL); Benzodiazepine Urine NEGATIVE (< 200 ng/mL); Cocaine Urine NEGATIVE (< 300 ng/mL); Ecstacy Urine POSITIVE (< 500 ng/mL); Methadone Urine NEGATIVE (< 300 ng/mL); Opiates Urine NEGATIVE (< 300 ng/mL); PCP Urine NEGATIVE (< 25 ng/mL); THC Urine NEGATIVE (< 50 ng/mL); Vista UDS pH Range 5
[2023-09-11 15:29] LABS: Glucose, Dipstick 1000 mg/dl (Normal); Leukocyte Esterase-Dipstick 500 /ul (Negative); Nitrite-Dipstick Positive (Negative); Occult Blood-Urine 250 /ul (Negative); Protein-Dipstick 500 mg/dl (Negative); Urine Urobilinogen 8 mg/dl (Normal)
[2023-09-11 15:37] LABS: Color, Urine Yellow (Yellow); Urine Bilirubin Dipstick 6 mg/dL (Negative); Urine Clarity Clear (Clear)
[2023-09-11 15:44] LABS: Ketone-Dipstick 150 mg/dl (Negative)
[2023-09-11 15:48] LABS: Mucous, Urine 2+ /hpf (<or=2+); White Blood Cells 5-10 SEEN /hpf (0-5)
[2023-09-11 15:49] LABS: Bacteria RARE /hpf (None Seen); Red Blood Cells-Urine 0-5 SEEN /hpf (0-5)
--- NOTE | 2023-09-11 16:01 | EKG12_ITS ---
Test Reason : Blood Pressure : / mmHG Vent. Rate : 061 BPM Atrial Rate : 061 BPM P-R Int : 130 ms QRS Dur : 128 ms QT Int : 464 ms P-R-T Axes : 025 012 024 degrees QTc Int : 467 ms Normal sinus rhythm Right bundle branch block Minimal voltage criteria for LVH, may be normal variant ( R in aVL ) Abnormal ECG Confirmed by Glen Cat ([id number]), newspaper editor MARIE PRESSLEY ([id number]) on 09/13/2023 11:06:41 AM Referred By: Confirmed By:Glen Cat
--- NOTE | 2023-09-11 16:54 | NURSING ---
FAXED CHART TO [facility]
--- NOTE | 2023-09-11 18:32 | ED.RN ---
PER DR. VELAZQUEZ, PT IS MEDICALLY CLEARED. [facility] CONTACTED AND REPORT THAT THEY WILL BE IN TO EVALUATE PT.
--- NOTE | 2023-09-11 20:42 | ED.RN ---
spoke with poison control requesting pt update
[2023-09-12 02:00] VITALS: PULSE 72; RESP 16; O2SAT 96
[2023-09-12 05:20] VITALS: BP 99/68; PULSE 67; RESP 18; TEMP 36.6; O2SAT 96
[2023-09-12 05:21] VITALS: BP 99/68; PULSE 67; RESP 16; TEMP 36.6; O2SAT 96
[2023-09-12] MEDS: Sertraline 50 MG Tablet PO (06:07)
[2023-09-12] MEDS: amLODIPine 10 MG Tablet PO (06:07)
[2023-09-12] MEDS: Losartan Potassium 50 MG Tablet PO (06:07)
[2023-09-12] MEDS: Aspirin 81 MG TAB.CHEW PO (06:08)
[2023-09-12] MEDS: Metoprolol Tartrate 50 MG Tablet PO (06:08)
== END 2023-09-12 07:47 ==
PROVIDERS: Emergency Provider Emergency Medicine; PCP Nurse Practitioner Primary Care; Visit Provider Emergency Medicine
DX: T43.212A Poisoning by selective serotonin and norepinephrine reuptake inhibitors, intentional self-harm, initial encounter (principal); X78.8XXA Intentional self-harm by other sharp object, initial encounter; R45.851 Suicidal ideations; S51.811A Laceration without foreign body of right forearm, initial encounter; I45.10 Unspecified right bundle-branch block; F32.A Depression, unspecified; Z87.891 Personal history of nicotine dependence; E78.2 Mixed hyperlipidemia; Z79.899 Other long term (current) drug therapy; R53.83 Other fatigue
CPT/HCPCS: 12002; 80048; 80307; 80329; 81001; 82077; 85025; 93005; 99285; G0480

== ENCOUNTER 2023-09-24 06:26 | Outpatient (RCR) | payer MEDICARE, SELFPAY ==
[2023-08-16 10:49] VITALS: BMI 32.1
--- NOTE | 2023-09-12 08:15 | PCM.CR.ITP ---
Exercise - Initial Assessment Visit Date of Eval: 09/12/23 Comments:: Pt has not started rehab due to health reasons. Psychosocial - Initial Assess Target Goals Target Goals Nutrition Survey Nutrition Survey Instructions Scoring Instructions Exercise - 30-day Assessment Visit Comments:: Pt has not started rehab due to health reasons. Psychosocial - 30-Day Assess Target Goals Target Goals Psychosocial - 60-Day Assess Target Goals Target Goals Psychosocial - 90-Day Assess Target Goals Target Goals Psychosocial - Final Assessmen Target Goals Target Goals
== END 2023-10-23 23:59 ==
LOC: CR 06:26
PROVIDERS: PCP Nurse Practitioner Primary Care; Visit Provider Thoracic Surgery (Cardiothoracic Vascular Surgery)
DX: Z95.2 Presence of prosthetic heart valve (principal)
CPT/HCPCS: 93798